=== PATIENT | female | born 1975 | race Caucasian/White ===

== ENCOUNTER 2019-01-14 20:14 | Emergency (ER) | payer SELFPAY, OTHER ==
[2019-01-15] MEDS: DIPHTH/TET/ACEL PERTUSS (ADULT) 0.5 ML VIAL IM* (01:05)
[2019-01-15] MEDS: AMOXICILLIN/CLAV 875 MG TAB PO (01:20)
[2019-01-15] MEDS: LIDOCAINE 1% (MDV) 20 ML INJ SC (01:30)
== END 2019-01-15 04:04 | disposition home or self-care (01) ==
LOC: FTE 20:14
DX: S91.311A Laceration without foreign body, right foot, initial encounter (principal); W54.0XXA Bitten by dog, initial encounter; Y92.9 Unspecified place or not applicable; Z23 Encounter for immunization
CPT/HCPCS: 73630; 81025; 90471; 90715; 99283-25